=== PATIENT | female | born 1935 | race Caucasian/White ===

== ENCOUNTER 2021-01-26 23:01 | Emergency (ER) | payer MEDICARE, BC ==
[~2021-01-26] VITALS: Ht 175.3 cm; Wt 50.0 kg
[2021-01-27] MEDS ORDERED: TETanus/Pertussis (Acell)/Diphther VAC/PF (Tdap-Adult) 0.5ml syringe IMVAC ONE
[2021-01-27 00:24] VITALS: BP 156/70
[2021-01-27] MEDS ORDERED: LIDOcaine 1% W/epiNEPHrine 1:200,000 10ml vial IJ ONE (00:45)
[2021-01-27] MEDS ORDERED: LIDOcaine 1% w/epiNEPHrine 1:200,000 30ml vial IJ ONE (01:40)
--- NOTE | 2021-01-27 02:10 | NUR ---
patient left before triage
== END 2021-01-27 04:41 | disposition home or self-care (01) ==
LOC: ER 23:01
DX: S01.111A Laceration without foreign body of right eyelid and periocular area, initial encounter (principal); S00.83XA Contusion of other part of head, initial encounter; E11.9 Type 2 diabetes mellitus without complications; W01.0XXA Fall on same level from slipping, tripping and stumbling without subsequent striking against object, initial encounter; Y93.01 Activity, walking, marching and hiking; Y92.89 Other specified places as the place of occurrence of the external cause; Y99.8 Other external cause status
CPT/HCPCS: 12011; 70450; 72125; 90471; 90715; 99284